=== PATIENT | female | born 1990 | race Two or more races ===

== ENCOUNTER → 2018-09-10 | Outpatient (CLI) | payer SELFPAY ==
--- NOTE | 2018-09-10 16:05 | RADIOLOGY REPORT (SQ) ---
EXAM DESCRIPTION: U/S OB 14+ TRNABD 1GES W/O DOP COMPLETED DATE/TIME: 09/10/2018 3:05 pm REASON FOR STUDY: ENCTR FOR SUPERVISION OF OTHER NORMAL 2ND TRIMESTER (Z34.82) Z34.82 ENC OUNTER FOR SUPRVSN OF NORMAL , SECOND TRI COMPARISON: None. TECHNIQUE: Static and Dynamic grayscale imaging performed of gravid uterus using transabdominal appr oach. Additional selected color Doppler and spectral images recorded. All stored on PACS. LIMITATIONS: None. FINDINGS: FETUSES SEEN:1 EGA: 26 week 4 day. Calculated using BPD,FL,HC,AC documented on images. Clinical dates not provided. RAMOS: 12/13/2018. EFW: 930 grams ZACK: Adequate amount. PLACENTA: Posterior. GRADE: I PRESENTATION: Cephalic. ANATOMY: HEART RATE: 144 beats per minute. FOUR CHAMBER HEART: Visualized. THREE VESSEL CORD: Yes. CORD INSERTION: Visualized. KIDNEYS AND BLADDER: Questionable mild prominence of the collecting system of the left kidney. Limited visualization. STOMACH: Visualized. Appears normal. SPINE: Normal as visualized. BRAIN AND LATERAL VENTRICLES: Visualized. Appear normal. OTHER: No other significant finding. MATERNAL ADNEXA: Maternal ovaries not visualized. CERVICAL LENGTH: Not adequately seen. OTHER: No other significant finding. IMPRESSION: LIVING INTRAUTERINE . ESTIMATED GESTATIONAL AGE 26 WEEK 4 DAY. POSSIBLE MILD PROMINENCE OF THE COLLECTING SYSTEM OF THE LEFT KIDNEY. RECOMMEND FOLLOWUP ULTRA SOUND LATER IN TO RE-EVALUATE THIS FINDING. NO OTHER VISUALIZED ANOMALIES. Trimester of : Second trimester - 13 weeks 1 day to 27 weeks 6 days. TECHNICAL DOCUMENTATION: JOB ID: [id number] [employer]- All Rights Reserved Reading location - IP/workstation name: [email or web address]
== END ==
LOC: RAD 14:05
PROVIDERS: ATTEND Nurse Practitioner
DX: Z34.82 Encounter for supervision of other normal pregnancy, second trimester (principal)
CPT/HCPCS: 76805

== ENCOUNTER 2018-10-08 22:02 | Outpatient (CLI) | payer SELFPAY ==
[2018-10-08 22:44] LABS: APPEARANCE,URINE CLEAR; BILIRUBIN,URINE NEGATIVE (NEGATIVE); COLOR,URINE YELLOW; GLUCOSE, URINE 150 mg/dL (NEGATIVE); KETONES,URINE TRACE mg/dL (NEGATIVE); LEUKOCYTE ESTERASE,URINE NEGATIVE (NEGATIVE); NITRITE,URINE NEGATIVE (NEGATIVE); PROTEIN,URINE NEGATIVE (NEGATIVE); URINE SPECIFIC GRAVITY 1.023; UROBILINOGEN,URINE NEGATIVE mg/dL (<2.0)
[2018-10-08 23:30] LABS: URINE AMPHETAMINES SCREEN NEGATIVE; URINE BARBITURATES SCREEN NEGATIVE; URINE BENZODIAZEPINES SCREEN NEGATIVE; URINE COCAINE SCREEN NEGATIVE; URINE MARIJUANA (THC) SCREEN NEGATIVE; URINE METHADONE SCREEN NEGATIVE; URINE PHENCYCLIDINE SCREEN NEGATIVE
[2018-10-08] MEDS ORDERED: BETAMET ACET/BETAMET NA INJ 6 MG/1 ML ONE (23:56)
[2018-10-08] MEDS ORDERED: BETAMET ACET/BETAMET NA INJ 6 MG/1 ML IM ONE (23:58)
--- NOTE | 2018-10-09 00:01 | RADIOLOGY REPORT (SQ) ---
EXAM DESCRIPTION: US LIMITED COMPLETED DATE/TME: 10/08/2018 00:00 CLINICAL HISTORY: 27 years, Female, Cervical length to eval labor COMPARISON: Prior ultrasound 09/10/2018 TECHNIQUE: Limited Transverse and longitudinal transvaginal sonographic images in a third trimester patient. LIMITATIONS: None. FINDINGS: There is a single, live intrauterine gestation in the vertex presentation. Cervical length is 1.2 cm. No cervical funneling. The cervical os appears closed. A more detailed obstetric assessment was not performed at this time. heart tones obtained at 139 bpm. IMPRESSION: Cervical length is 1.2 cm and the cervical os appears closed. Single, live intrauterine gestation. Close obstetric follow-up recommended. copyright 2010 [employer]- All Rights Reserved
[2018-10-09] MEDS ORDERED: AMPICILLIN SOD INJ 2 GM VIAL IV ONE (00:04)
[2018-10-09] MEDS ORDERED: AMPICILLIN SOD INJ 2 GM VIAL ONE (00:05)
--- NOTE | 2018-10-09 01:15 | PDOC TRANSFER SUMMARY ---
General Admission Date/PCP: ROHIT ZAPATA, YAHIR Admission Date: 10/08/18 Transfer Date: 10/09/18 Accepting Facility: [facility] Accepting Physician: Dr. Castro Resuscitation Status: Full Code - Transfer Diagnosis (1) labor in third trimester Is this a current diagnosis for this admission?: Yes (2) History of delivery, currently in third trimester Is this a current diagnosis for this admission?: Yes (3) Short cervical length during in third trimester Is this a current diagnosis for this admission?: Yes (4) Previous section complicating Is this a current diagnosis for this admission?: Yes - Transfer Medications Home Medications: No Home Medications 10/08/18 - Allergies Allergies/Adverse Reactions: No Known Allergies Allergy (Verified 10/08/18 22:22) - Diet/Activity Discharge Activity: Bedrest Hospital Course Hospital Course: Pt seen in L&D for cramping and revealed a history of (2) previous deliveries. She also is previous C/S x 2. She cannot give a reason for the Primary C/S but was not allowed to at the facility. One delivery was at 32 weeks and the other at 29 weeks. Her CL tonight is 1.2 cm, but closed. She has had late and limited PNC. [facility] 26 weeks. She is pinky irregularly and not feeling any discomfort. Physical Exam Vital Signs: Intake & Output 10/07/18 10/08/18 10/09/18 06:59 06:59 06:59 Weight 67.4 kg General appearance: PRESENT: no acute distress Respiratory exam: PRESENT: clear to auscultation elder Cardiovascular exam: PRESENT: RRR GI/Abdominal exam: PRESENT: normal bowel sounds, soft Extremities exam: ABSENT: calf tenderness, clubbing, full ROM, joint swelling, pedal edema, tenderness, +1 edema, +2 edema, other Results Laboratory Results: 10/08/18 22:17 Urine Color YELLOW Urine Appearance CLEAR Urine pH 6.0 Ur Specific [place] 1.023 Urine Protein NEGATIVE Urine Glucose (UA) 150 H Urine Ketones TRACE H Urine Blood NEGATIVE Urine Nitrite NEGATIVE Ur Leukocyte Esterase NEGATIVE Urine WBC (Auto) 1 Urine RBC (Auto) 29 Impressions: Obstetrics Ultrasound 10/08/18 00:00 IMPRESSION: Cervical length is 1.2 cm and the cervical os appears closed. Single, live intrauterine gestation. Close obstetric follow-up recommended. copyright 2011 [employer]- All Rights Reserved Plan Discharge Plan: 1. Transfer to [facility]--accepted by Dr. Castro 2. Betamethasone 12 mg IM 3. Ampicillin 2 g IV now Time Spent: Less than 30 Minutes
== END 2018-10-09 02:21 | disposition short-term general hospital (02) ==
LOC: LC 22:02
PROVIDERS: ATTEND Obstetrics & Gynecology
PROC: 4A1HXCZ Monitoring of Products of Conception, Cardiac Rate, External Approach (ICD-10-PCS; principal; 2018-10-08)
DX: O26.873 Cervical shortening, third trimester (principal); O34.219 Maternal care for unspecified type scar from previous cesarean delivery; O09.33 Supervision of pregnancy with insufficient antenatal care, third trimester; Z3A.30 30 weeks gestation of pregnancy
CPT/HCPCS: 59899; 94760; 81001; 80307; 76815; J0290; J0702

== ENCOUNTER 2018-11-11 02:45 | Outpatient (CLI) | payer SELFPAY ==
[2018-11-11 03:17] LABS: APPEARANCE,URINE SLIGHTLY-CLOUDY; BILIRUBIN,URINE NEGATIVE (NEGATIVE); COLOR,URINE YELLOW; GLUCOSE, URINE NEGATIVE (NEGATIVE); KETONES,URINE TRACE mg/dL (NEGATIVE); LEUKOCYTE ESTERASE,URINE TRACE (NEGATIVE); NITRITE,URINE NEGATIVE (NEGATIVE); PROTEIN,URINE NEGATIVE (NEGATIVE)
[2018-11-11 03:33] LABS: URINE AMPHETAMINES SCREEN NEGATIVE; URINE BARBITURATES SCREEN NEGATIVE; URINE BENZODIAZEPINES SCREEN NEGATIVE; URINE COCAINE SCREEN NEGATIVE; URINE MARIJUANA (THC) SCREEN NEGATIVE; URINE METHADONE SCREEN NEGATIVE; URINE PHENCYCLIDINE SCREEN NEGATIVE
[2018-11-11] MEDS ORDERED: ACETAMINOPHEN 325 MG TABLET ONE ×2 (03:38→03:39)
[2018-11-11] MEDS ORDERED: HYDROXYZINE PAMOATE 50 MG CAPSULE ONE (03:38)
[2018-11-11] MEDS ORDERED: RINGERS SOLUTION,LACTATED 1,000 ML IV PRN ×2 (03:39→03:44)
[2018-11-11] MEDS ORDERED: ACETAMINOPHEN 325 MG TABLET PO ONE ×2 (03:43→04:00)
[2018-11-11] MEDS ORDERED: HYDROXYZINE PAMOATE 50 MG CAPSULE PO ONE ×2 (03:45→04:00)
[2018-11-11 04:40] LABS: ABSOLUTE EOSINOPHILS # (AUTO) 0.1 10^3/uL (0.0-0.6); ABSOLUTE LYMPHOCYTES (AUTO) 2.2 10^3/uL (0.5-4.7); ABSOLUTE MONOCYTES (AUTO) 0.7 10^3/uL (0.1-1.4); ABSOLUTE NEUT (AUTO) 4.6 10^3/uL (1.7-8.2); BASOPHILS % (AUTO) 0.5 % (0-2); HEMATOCRIT 26.5 % (36.0-47.0); LYMPHOCYTES % (AUTO) 29.2 % (13-45); MEAN CORPUSCULAR HEMOGLOBIN 26.5 pg (27.0-33.4); MEAN CORPUSCULAR HGB CONC 33.8 g/dL (32.0-36.0); MEAN CORPUSCULAR VOLUME 78 fl (80-97); MONOCYTES % (AUTO) 9.5 % (3-13); PLATELET COUNT 278 10^3/uL (150-450); RED BLOOD COUNT 3.39 10^6/uL (3.72-5.28); RED CELL DISTRIBUTION WIDTH 14.1 % (11.5-14.0); SEGMENTED NEUTROPHILS % (AUTO) 59.8 % (42-78); TOTAL CELLS COUNTED % (AUTO) 100 %; WHITE BLOOD COUNT 7.6 10^3/uL (4.0-10.5)
[2018-11-11 05:25] LABS: RUBELLA INTERPRETATION POSITIVE
--- NOTE | 2018-11-11 06:22 | Non Stress Test Report ---
Non Stress Test Datetime Report Generated by CPN: 11/11/2018 06:22 DEMOGRAPHIC EGA NST: 35.3 INDICATION Indication for Study: Ordered by Provider MONITORING Monitor Explained: Monitor Explained; Test Explained; Patient Verbalized Understanding Time on Monitor: 11/11/2018 03:14 Time off Monitor: 11/11/2018 06:20 NST Duration: 186 NST INTERVENTIONS NST Interventions: IV Fluids Physician Notified NST: Dr. Mendoza BABY A: [id number] BABY A Movement : Present Contraction Frequency : uterine irritability FHR Baseline : 135 Accelerations : 15X15 Decelerations : None Variability : Moderate 6-25bpm NST Review: Meets Criteria for Reactive NST NST Review and Verified By : Ally Fields RN NST Results: Reactive NST REPORT Report Trigger: Send Report
[2018-11-12 10:38] LABS: HEPATITIS C VIRUS AB <0.1 s/co ratio (0.0-0.9)
[2018-11-12 10:47] LABS: HEPATITS B SURFACE ANTIGEN Negative (Negative)
== END 2018-11-11 06:03 | disposition home or self-care (01) ==
LOC: LC 02:45
PROVIDERS: ATTEND Obstetrics & Gynecology
PROC: 4A1HXCZ Monitoring of Products of Conception, Cardiac Rate, External Approach (ICD-10-PCS; principal; 2018-11-11)
DX: O47.03 False labor before 37 completed weeks of gestation, third trimester (principal); O09.33 Supervision of pregnancy with insufficient antenatal care, third trimester; Z3A.35 35 weeks gestation of pregnancy
CPT/HCPCS: 36415; 59025; 80307; 81001; 85025; 86701; 86762; 86803; 86804; 86850; 86900; 86901; 87081; 87340

== ENCOUNTER 2018-12-08 07:53 | Inpatient (IN) | payer SELFPAY ==
[2018-12-08] MEDS ORDERED: CEFAZOLIN 2 GM/D5W RTU 2 GM/50 ML RTUPB IV ONE (08:30)
[2018-12-08] MEDS ORDERED: CITRIC ACID/SODIUM CITRATE ORAL SOLN 15 ML UDCUP ONE (08:32)
[2018-12-08] MEDS ORDERED: RINGERS SOLUTION,LACTATED 1,000 ML IV ONE (08:40)
[2018-12-08] MEDS ORDERED: RINGERS SOLUTION,LACTATED 1,000 ML IV PRN (08:40)
[2018-12-08] MEDS ORDERED: DEXTROSE 40% GEL 15 GM TUBE PO PRN ×2 (08:42)
[2018-12-08] MEDS ORDERED: DEXTROSE 50%-WATER 25 GM/50 ML DISP.SYRIN IV PRN ×2 (08:42)
[2018-12-08] MEDS ORDERED: GLUCAGON,HUMAN RECOMB 1 MG INJ SUBCUT PRN (08:42)
[2018-12-08] MEDS ORDERED: CEFAZOLIN SODIUM 2 GM in DEXTROSE 5%-WATER 50 ML IV PRN (08:43)
[2018-12-08] MEDS ORDERED: ONDANSETRON HCL INJ/PF 4 MG/2 ML SDV ONE ×2 (08:55→09:44)
[2018-12-08] MEDS ORDERED: METOCLOPRAMIDE HCL INJ/PF 10 MG/2 ML SDV ONE (08:55)
[2018-12-08] MEDS ORDERED: PHENYLEPHRINE HCL INJ/PF 10 MG/1 ML SDV ONE (08:55)
[2018-12-08] MEDS ORDERED: DEXAMETHASONE SOD PHOSPHATE INJ 4 MG/1 ML VIAL ONE (08:55)
--- NOTE | 2018-12-08 09:16 | Admission Physical ---
Datetime Report Generated by CPN: 12/08/2018 09:16 CURRENT ADMISSION Chief Complaint: Uterine Contractions Indication for Induction: Not Applicable Admit Impression : Term, Intrauterine ; Active Labor; Intact Membranes; Repeat Section Admit Plan: Admit to Unit; Initiate Section Protocol ALLERGIES Medication Allergies: No Medication Allergies: No Known Allergies (11/11/2018) Latex: No Latex Allergies OBSTETRICAL HISTORY EDC: 12/13/2018 00:00 : 4 Para: 2 Term: 0 : 2 SAB: 1 IAB: 0 Ectopic: 0 Livin Cesareans: 2 VBACs: 0 Multiple Births: 0 Gestational Diabetes: No Rh Sensitization: No Incompetent Cervix: No KARINA: No Infertility: No ART Treatment: No Uterine Anomaly: No IUGR: No Hx Previous C/S: Yes Macrosomia: No Hx Loss/Stillborn: No PIH: No Hx : No Placenta Previa/Abruption: No Depression/PP Depression: No PTL/PROM: Yes Post Hemorrhage: No Obstetrical History Comments: Pt states she had emergency C-sections with her first two births. One at 29 weeks and the other at 32 weeks. Pt does not know reason for C-seciton. Current - questionable mild prominence of the collecting system of the left kidney. late to PNC at 26 weeks. SEE RECORDS Alcohol: No Marijuana : No Cocaine: No Other Illicit Drugs: No Cigarettes: Never Smoker. [id number] MEDICAL HISTORY Diabetes: No Blood Transfusion: No Pulmonary Disease (Asthma, TB): No Breast Disease: No Hypertension: No Transportation Maintenance Supervisor Surgery: Yes Heart Disease: No Hosp/Surgery: No Autoimmune Disorder: No Anesthetic Complications: No Kidney Disease: No Abnormal Pap Smear: No Neuro/Epilepsy: No Psychiatric Disorders: No Other Medical Diseases: No Hepatitis/Liver Disease: No Significant Family History: No Varicosities/Phlebitis: No Trauma/Violence : No Thyroid Dysfunction: No INFECTIOUS HISTORY Gonorrhea: No Genital Herpes: No Chlamydia: No Tuberculosis: No Syphilis: No Hepatitis: No HIV/AIDS Exposure: No Rash or Viral Illness: No HPV: No Infectious History Comments: Previous 2014 _ 2016 PHYSICAL EXAM General: Normal HEENT: Normal Neurologic: Normal Thyroid: Deferred Heart: Normal Lungs: Normal Breast: Deferred Back: Normal Abdomen: Normal Genitourinary Exam: Normal Extremities: Normal DTRs: Normal Pelvic Type: Adequate Vital Signs: Reviewed VAGINAL EXAM Dilatation: 4 Effacement: 100 Station: -2 MEMBRANES Membranes: Intact FETUS A EGA: 39.2 Monitoring: External US FHR- Baseline: 120 Variability: Moderate 6-25bpm Decelerations: None FHR Category: Category I Presentation: Vertex Admit Comment: 27yo at 39+2ega presents for uterine contractions. cvx was 3cm last week. Now 4-5/100/-2. late to care and limited care. h/o C/S x 2 (PTL at 29 and 32wks). She in now in early active labor and due to two prior sections needs repeat section. She desires permanent sterilization. Title XX signed at [facility]. Pt denies any other medical issues. Reviewed h/o General anesthesia with last two c/s and reviewed better safety with spinal and she agrees to spinal. Labs done 10/2018 triage visit. motorcycle police officer to OR for Repeat section with BTL. Consents signed. PLANS FOR LABOR AND DELIVERY Labor and Delivery: None Pain Management: Spinal Feeding Preference: Breast Benefit of Breast Feed Discussed: Yes Circumcision: N/A INFORMED CONSENT Informed Consent Obtained: Section Delivery; Risks, Benefits and Alternatives Discussed Signature: with User ID: [email or web address]
[2018-12-08 09:17] LABS: APPEARANCE,URINE SLIGHTLY-CLOUDY; BILIRUBIN,URINE NEGATIVE (NEGATIVE); COLOR,URINE YELLOW; GLUCOSE, URINE NEGATIVE (NEGATIVE); KETONES,URINE NEGATIVE (NEGATIVE); LEUKOCYTE ESTERASE,URINE SMALL (NEGATIVE); NITRITE,URINE NEGATIVE (NEGATIVE); PROTEIN,URINE NEGATIVE (NEGATIVE); UROBILINOGEN,URINE NEGATIVE mg/dL (<2.0)
[2018-12-08 09:31] LABS: ABSOLUTE EOSINOPHILS # (AUTO) 0.1 10^3/uL (0.0-0.6); ABSOLUTE LYMPHOCYTES (AUTO) 2.8 10^3/uL (0.5-4.7); ABSOLUTE MONOCYTES (AUTO) 0.4 10^3/uL (0.1-1.4); ABSOLUTE NEUT (AUTO) 4.1 10^3/uL (1.7-8.2); BASOPHILS % (AUTO) 0.7 % (0-2); EOSINOPHILS % (AUTO) 1.4 % (0-6); HEMATOCRIT 28.9 % (36.0-47.0); HEMOGLOBIN 9.6 g/dL (12.0-15.5); LYMPHOCYTES % (AUTO) 37.1 % (13-45); MEAN CORPUSCULAR HEMOGLOBIN 25.3 pg (27.0-33.4); MEAN CORPUSCULAR HGB CONC 33.1 g/dL (32.0-36.0); MEAN CORPUSCULAR VOLUME 77 fl (80-97); MONOCYTES % (AUTO) 5.6 % (3-13); PLATELET COUNT 268 10^3/uL (150-450); RED BLOOD COUNT 3.78 10^6/uL (3.72-5.28); RED CELL DISTRIBUTION WIDTH 15.2 % (11.5-14.0); SEGMENTED NEUTROPHILS % (AUTO) 55.2 % (42-78); TOTAL CELLS COUNTED % (AUTO) 100 %; WHITE BLOOD COUNT 7.4 10^3/uL (4.0-10.5)
[2018-12-08 09:36] LABS: URINE AMPHETAMINES SCREEN NEGATIVE; URINE BARBITURATES SCREEN NEGATIVE; URINE BENZODIAZEPINES SCREEN NEGATIVE; URINE COCAINE SCREEN NEGATIVE; URINE MARIJUANA (THC) SCREEN NEGATIVE; URINE METHADONE SCREEN NEGATIVE; URINE PHENCYCLIDINE SCREEN NEGATIVE
[2018-12-08] MEDS ORDERED: EPHEDRINE SULFATE INJ 50 MG/1 ML AMPULE ONE (09:44)
[2018-12-08] MEDS ORDERED: MIDAZOLAM 2 MG/2 ML INJ ONE (09:44)
[2018-12-08] MEDS ORDERED: BUPIVACAINE HCL/DEX-WATER/PF 15 MG/2 ML AMPULE ONE (09:44)
[2018-12-08] MEDS ORDERED: FENTANYL CITRATE INJ/PF 100 MCG/2 ML AMPUL ONE (09:44)
[2018-12-08] MEDS ORDERED: OXYTOCIN 10 UNIT/ML VIAL ONE (09:45)
[2018-12-08] MEDS ORDERED: MORPHINE SULFATE 10 MG/ML INJ IV PRN (10:22)
[2018-12-08] MEDS ORDERED: PROMETHAZINE HCL INJ 25 MG/1 ML VIAL IV PRN ×3 (10:22→11:09)
[2018-12-08] MEDS ORDERED: MEPERIDINE HCL/PF INJ 25 MG/1 ML DISP.SYRIN IV PRN (10:22)
[2018-12-08] MEDS ORDERED: DIPHENHYDRAMINE HCL 50 MG/ML VIAL IV PRN (10:22)
[2018-12-08] MEDS ORDERED: FENTANYL CITRATE INJ/PF 100 MCG/2 ML AMPUL IV PRN ×3 (10:22)
[2018-12-08] MEDS ORDERED: ACETAMINOPHEN 325 MG TABLET PO PRN (11:09)
[2018-12-08] MEDS ORDERED: ACETAMINOPHEN 1,000 MG/100 ML RTUPB IV PRN (11:09)
[2018-12-08] MEDS ORDERED: OXYTOCIN/NORMAL SALINE 20 UNIT/1,000 ML RTUINJ IV PRN (11:09)
[2018-12-08] MEDS ORDERED: MEASLES,MUMPS&RUBELLA VACC/PF 0.5 ML VIAL SUBCUT PRN (11:09)
[2018-12-08] MEDS ORDERED: HYDROMORPHONE HCL INJ/PF 2 MG/ML AMPULE IV PRN (11:09)
[2018-12-08] MEDS ORDERED: DIPH/PERTUSS(ACELL)/TETANUS VAC/PF 0.5 ML SYR (>=10YO) IM PRN (11:09)
[2018-12-08] MEDS ORDERED: SIMETHICONE 80 MG TAB.CHEW PO PRN (11:09)
[2018-12-08] MEDS ORDERED: OXYCODONE-ACETAMINOPHEN 5-325 MG TABLET PO PRN (11:09)
[2018-12-08] MEDS ORDERED: ACETAMINOPHEN 1,000 MG/100 ML RTUPB IV ONE (11:16)
--- NOTE | 2018-12-08 11:26 | Brief Operative Note ---
BRIEF OPERATIVE REPORT DATE OF SURGERY: 12/08/18 TIME OF SURGERY: 10:00 PREOPERATIVE DIAGNOSIS: active labor, PUND at 39+2ega. H/o section x 2, multiparity, undesired fertility. 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 normal bilateral tubes and ovaries. Filschie clips already pulled for case therefore filschie clips times one placed on each tube in the mid ampullary portion of the tube. Surgicel placed over rectus muscle due to bleeding. Scar which was keloid was removed to repaire pfannensteil incision. Apgars 8/9, weigth 7#4oz. Time of 1013, female infant COMPLICATIONS: None ESTIMATED BLOOD LOSS: 560 TISSUE REMOVED OR ALTERED: placenta and cord TECHNICAL PROCEDURE: Repeat Section, Scar revision, Bilateral tubal ligation
[2018-12-08] MEDS ORDERED: HYDROMORPHONE HCL INJ/PF 2 MG/ML AMPULE ONE (12:17)
[2018-12-08] MEDS ORDERED: PROMETHAZINE HCL INJ 25 MG/1 ML VIAL ONE (13:05)
--- NOTE | 2018-12-08 17:03 | Operative Report ---
Operative Report DATE OF SURGERY: 12/08/18 PREOPERATIVE DIAGNOSIS: active labor, PUND at 39+2ega. H/o section x 2, multiparity, undesired fertility. 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 normal bilateral tubes and ovaries. Filschie clips already pulled for case therefore filschie clips times one placed on each tube in the mid ampullary portion of the tube. Surgicel placed over rectus muscle due to bleeding. Scar which was keloid was removed to repaire pfannensteil incision. Apgars 8/9, weigth 7#4oz. Time of 1013, female infant PROCEDURE: Anesthesia: Spinal Anesthesia provider: [MD Shaun] Urine output: [150ml] IV fluids: [2000ml] Indications: [28yo at 39+2ega presents for uterine contractions in active labor with cervix 4-5/100/-2. She has a history of 2 prior sections at 29 and 32wks that were emergent. She has undesired fertility. She has signed a Title XX and desires permanent sterilization. The risks, benefits, alternatives were reviewed and she desires to proceed with planned procedure.] Procedure: The patient was taken to the operating room where spinal anesthesia was obtained and found to be adequate. She was then prepped and draped in the normal sterile fashion and placed in the dorsal supine position with a leftward tilt. A Pfannenstiel skin incision was then made and carried through to the underlying layers of the fascia with the scalpel. The fascia was incised in the midline and the incision extended laterally with the Alcala scissors. The superior aspect of the fascial incision was then grasped with Joyce clamps elevated and the underlying rectus muscles dissected off [sharply]. Attention was then turned to the inferior aspect of the fascial incision which in a similar fashion was grasped, tented up with Joyce clamps, and the rectus muscles dissected off [sharply]. The rectus muscles were then in the midline and the peritoneum at the amount identified and entered [bluntly]. The peritoneal incision was then extended superiorly and inferiorly with good vi sualization of the bladder. The bladder blade was inserted and the uterine window as described in findings. At this time transverse incision made above the uterine window in the mid body of the fundus. The uterine incision was then extended bluntly. The bladder blade was removed and the 's head was delivered from cephalic presentation atraumatically. The nose and mouth were suctioned and the cord doubly clamped and cut. And the infant was handed off to waiting pediatricians. The placenta was then delivered spontaneously and the uterus exteriorized and cleared of all clots and debris. The uterine incision was then repaired with 1- 0 Vicryl in a running locked fashion. A second layer of the same suture was used to obtain hemostasis via imbrication of the initial layer. The bladder flap was then repaired with 3-0 chromic in a running fashion. Filschie clips were placed on the left and right fallopian tube in the mid ampullary portion bilaterally. The uterus was returned to the patient's abdomen and Interceed was placed overlying the uterine incision to prevent adhesions. The gutters were cleared of all clots and debris. All operative sites were noted to be hemostati c. The fascia was reapproximated with 0 Vicryl in a running fashion from each lateral edge to the midline. The skin was closed with 3-0 Monocryl in a running subcuticular fashion with overlying Dermabond for additional dressing as well as wound closure. The patient tolerated the procedure well. Sponge lap needle and instrument counts are correct times 2. 2 g of Ancef were given prior to skin incision. The patient was taken to the recovery area awake and in stable condition.
[2018-12-08] MEDS: IBUPROFEN 800 MG TABLET PO SCH ×2 (17:49→17:50)
[2018-12-08] MEDS: DOCUSATE SODIUM 100 MG CAPSULE PO SCH (17:50)
[2018-12-08] MEDS: OXYCODONE-ACETAMINOPHEN 5-325 MG TABLET PO PRN (21:46)
[2018-12-09] MEDS: OXYCODONE-ACETAMINOPHEN 5-325 MG TABLET PO PRN ×3 (02:10→20:32)
[2018-12-09] MEDS: IBUPROFEN 800 MG TABLET PO SCH ×4 (06:02→17:25)
[2018-12-09 07:59] LABS: HEMATOCRIT 27.6 % (36.0-47.0); HEMOGLOBIN 9.1 g/dL (12.0-15.5); MEAN CORPUSCULAR HEMOGLOBIN 25.2 pg (27.0-33.4); MEAN CORPUSCULAR VOLUME 76 fl (80-97); PLATELET COUNT 281 10^3/uL (150-450); RED BLOOD COUNT 3.62 10^6/uL (3.72-5.28); RED CELL DISTRIBUTION WIDTH 15.6 % (11.5-14.0)
[2018-12-09] MEDS: DOCUSATE SODIUM 100 MG CAPSULE PO SCH ×2 (10:11→17:25)
[2018-12-09] MEDS: PRENATAL VITAMIN W DHA CAPSULE PO SCH (10:12)
--- NOTE | 2018-12-09 16:51 | PDOC PROGRESS REPORT ---
Subjective-OB Progress Note for:: 12/09/18 Subjective: 28yo G4 now P3 s/p repeat ppd1. Pt. ambulating and voiding without difficulty. , reports passing gas. Denies any concerns today. . Physical Exam (OB) Vital Signs: Temp Pulse Resp BP Pulse Ox 98.6 F 69 15 128/65 H 98 12/09/18 09:02 12/09/18 09:02 12/09/18 09:02 12/09/18 09:02 12/09/18 09:02 Intake & Output 12/08/18 12/09/18 12/10/18 06:59 06:59 06:59 Intake Total 1432 Output Total 1900 Balance -468 Weight 69.8 kg - General General Appearance: Appears well In distress: None - PIH/Pre-Eclampsia Clonus: Negative Headache: Absent Epigastric Pain: No Visual Changes: No - Dressing Removed: Yes Incision: Well Approximated Closure Type: Surgical Glue - Bilateral Tubal Ligation Dressing Removed: No Site: Dressing - Lochia Lochia Amount: Scant < 10 ml Lochia Color: Rubra/Red - Abdomen Description: Tender, Soft Hernia Present: No Fundal Description: Firm, Midline Fundal Height: u/u - u/2 - Respiratory Respiratory Status: No respiratory distress - Cardiovascular Rhythm: Regular - Extremities Upper extremity: Normal inspection Lower extremities: Normal inspection - Neurological Cognition: Normal Orientation: AAOx4 - Psychological Associated symptoms: Normal affect, Normal mood Objective-Diagnostic Laboratory: 12/09/18 07:53 12/09/18 12/09/18 06:22 07:53 WBC Cancelled 14.0 H RBC Cancelled 3.62 L Hgb Cancelled 9.1 L Hct Cancelled 27.6 L MCV Cancelled 76 L MCH Cancelled 25.2 L MCHC Cancelled 33.0 RDW Cancelled 15.6 H Plt Count Cancelled 281 Assessment and Plan(PN) - Assessment and Plan (1) Anemia affecting in third trimester Is this a current diagnosis for this admission?: Yes Plan: Increase dietary iron and FeSO4 BID. (2) Status post scar revision Is this a current diagnosis for this admission?: Yes Plan: routine pp care (3) Limited care Qualifiers: Trimester: unspecified trimester Qualified Code(s): O09.30 - Supervision of with insufficient care, unspecified trimester Is this a current diagnosis for this admission?: Yes Plan: delviered (4) Sterilization Is this a current diagnosis for this admission?: Yes Plan: Routine pp care. Continue to monitor for s/s of infection (5) Status post section Is this a current diagnosis for this admission?: Yes Plan: . Routine pp care. Continue to monitor for s/s of infection (6) History of delivery, currently in third trimester Is this a current diagnosis for this admission?: Yes Plan: term delivery, delivered (7) Previous section complicating Is this a current diagnosis for this admission?: Yes Plan: delivered - Time Spent with Patient Time with patient: Less than 15 minutes - Disposition Anticipated Discharge: Home Within: within 24 hours
[2018-12-09] MEDS ORDERED: ONDANSETRON 4 MG TAB.RAPDIS PO PRN (23:54)
[2018-12-09] MEDS ORDERED: ONDANSETRON 4 MG TAB.RAPDIS ONE (23:54)
[2018-12-10] MEDS: IBUPROFEN 800 MG TABLET PO SCH ×3 (00:55→11:00)
[2018-12-10 08:44] LABS: HEPATITIS C VIRUS AB <0.1 s/co ratio (0.0-0.9)
--- NOTE | 2018-12-10 09:03 | PDOC PROGRESS REPORT ---
Subjective-OB Progress Note for:: 12/10/18 Subjective: Ready to go home. Physical Exam (OB) Vital Signs: Temp Pulse Resp BP Pulse Ox 98.8 F 74 16 128/65 H 98 12/10/18 08:47 12/10/18 08:47 12/10/18 08:47 12/10/18 08:47 12/10/18 08:47 Intake & Output 12/09/18 12/10/18 12/11/18 06:59 06:59 06:59 Intake Total 1432 2230 Output Total 1900 Balance -468 2230 Weight 69.8 kg - PIH/Pre-Eclampsia Clonus: Negative Headache: Absent Epigastric Pain: No Visual Changes: No - Dressing Removed: Yes Incision: Well Approximated Closure Type: Surgical Glue - Bilateral Tubal Ligation Dressing Removed: Yes - Lochia Lochia Amount: Scant < 10 ml Lochia Color: Rubra/Red - Abdomen Description: Soft, Round Hernia Present: No Bowel Sounds: Normoactive Flatus Presence: Present Stool: No Fundal Description: Firm, Midline Fundal Height: u/u - u/2 Objective-Diagnostic Laboratory: 12/09/18 07:53 Assessment and Plan(PN) - Disposition Anticipated Discharge: Home
--- NOTE | 2018-12-10 09:16 | PDOC DISCHARGE SUMMARY ---
Addendum entered and electronically signed by TOM QUEEN CNM 12/10/18 09:36: Final Diagnosis Discharge Date: 12/10/18 - Final Diagnosis (1) Limited care Is this a current diagnosis for this admission?: Yes (2) Anemia affecting in third trimester Is this a current diagnosis for this admission?: Yes (3) Status post section Is this a current diagnosis for this admission?: Yes (4) Status post scar revision Is this a current diagnosis for this admission?: Yes (5) Sterilization Is this a current diagnosis for this admission?: Yes Original Note: Final Diagnosis Discharge Date: 12/10/18 Discharge Data - Discharge Medication Prescriptions: Oxycodone HCl/Acetaminophen [Percocet 5-325 mg Tablet] 1 tab PO Q4HP PRN #20 tablet PRN Reason: Docusate Sodium [Colace 100 mg Capsule] 100 mg PO BID #30 capsule Ferrous Sulfate 325 mg PO BID #60 tablet. Ibuprofen [Motrin 800 mg Tablet] 800 mg PO Q6 #30 tablet Home Medications: Vit/Dha [ Multi + Dha Capsule] 1 cap PO DAILY 12/08/18 Docusate Sodium [Colace 100 mg Capsule] 100 mg PO BID #30 capsule 12/10/18 Ferrous Sulfate 325 mg PO BID #60 tablet. 12/10/18 Ibuprofen [Motrin 800 mg Tablet] 800 mg PO Q6 #30 tablet 12/10/18 Oxycodone HCl/Acetaminophen [Percocet 5-325 mg Tablet] 1 tab PO Q4HP PRN #20 tablet 12/10/18 Gestational Age: 39.2 wks Reason(s) for Admission: Onset of Labor Procedures: Ultrasound Intrapartum Procedure(s): : Low Cervical, Transverse - Jackson Data Baby 1 Female at 1 minute: 8 at 5 minutes: 9 Weight: 3.289 kg Home with Mother: Yes Complications: No - Diagnosis Test Laboratory: Temp Pulse Resp BP Pulse Ox 98.8 F 74 16 128/65 H 98 12/10/18 08:47 12/10/18 08:47 12/10/18 08:47 12/10/18 08:47 12/10/18 08:47 12/08/18 12/08/18 12/09/18 08:15 09:06 06:22 RBC 3.78 Cancelled Hgb 9.6 L Cancelled Hct 28.9 L Cancelled Urine Opiates Screen NEGATIVE 12/09/18 07:53 RBC 3.62 L Hgb 9.1 L Hct 27.6 L Urine Opiates Screen - Discharge information/Instructions Discharge Activity: Activity As Tolerated, Balance Activity w/Rest, No Driving, No Lifting Over 10 Pounds, No Lifting/Push/Pulling, Pelvic Rest, Slowly Increase Activity, No tub bath, Walk Frequently Discharge Diet: Regular Disposition: HOME, SELF-CARE Follow [facility]: [facility] in: 1, Weeks
[2018-12-10] MEDS: DOCUSATE SODIUM 100 MG CAPSULE PO SCH (10:14)
[2018-12-10] MEDS: PRENATAL VITAMIN W DHA CAPSULE PO SCH (10:14)
--- NOTE | 2018-12-10 10:47 | Delivery Summary ---
Del Sum A-C Datetime Report Generated by CPN: 12/10/2018 10:46 DELIVERY PERSONNEL DELIVERY PERSONNEL: [id number] Delivery Doctor:: Pilar Staley MD Anesthesiologist:: Shaun METAL FABRICATOR:: Mariely Valenteael, METAL FABRICATOR Separator Inserter:: Shady Gonzales, RN Color Dipper/TAR DISTILLATION SUPERVISOR: Shreya Scotty, BRIDGE LEVERMAN Color Dipper/TAR DISTILLATION SUPERVISOR: Jaimie Siu, ST MATERNAL INFORMATION Delivery Anesthesia: Spinal Maternal Complications: None LABOR SUMMARY EDC: 12/13/2018 00:00 No. Babies in Womb: 1 Attempted: No Labor Anesthesia: None LABOR INFORMATION Reason for Induction: Not Applicable Onset of Labor: 12/08/2018 08:20 Oxytocin: N/A Group B Beta Strep: 1 NO GROUP B STREPTOCOCCUS RECOVERED Antibiotics # of Doses: 1 Antibiotics Time of Last Dose: 0939 Name of Antibiotic Given: Ancef Steroids Given: Full Course Reason Steroids Not Administered: Indication MEMBRANES Membranes Rupture Method: Artificial Rupture of Membranes: 12/08/2018 10:13 Length of Rupture (hr): 0.00 Amniotic Fluid Color: Clear Amniotic Fluid Amount: Moderate Amniotic Fluid Odor: Normal STAGES OF LABOR Stage 3 hr: 0 Stage 3 min: 1 Total Time in Labor hr: 1 Total Time in Labor min: 54 VAGINAL DELIVERY Episiotomy: None Episiotomy: None Laceration #1: None Laceration #1: None Laceration Extension #1: N/A Laceration Extension #1: N/A Laceration Repair: Not Applicable Sponge Count Correct: N/A Sharps Count Correct: N/A CSECTION DELIVERY Primary Indication: > 2 Previous C-Sections Primary Indication: Repeat Elective Secondary Indication: N/A CSection Urgency: Non-Scheduled CSection Incidence: Repeat CSection Incidence: N/A Labor: Labor Labor: N/A Elective: Nonelective CSection Incision: Lower Uterine Transverse (Annotations: Data stored by [facility] on behalf of user) CSection Incision: Lower Uterine Transverse BABY A INFORMATION Delivery Date/Time: 12/08/2018 10:13 Method of Delivery: Born in Route : No : N/A Forceps: N/A Vacuum Extraction: N/A Shoulder Dystocia : No PRESENTATION/POSITION BABY A Presentation: Cephalic Cephalic Presentation: Vertex Breech Presentation: N/A PLACENTA INFORMATION BABY A Placenta Delivery Time : 12/08/2018 10:14 Placenta Method of Delivery: Manual Removal Placenta Status: Delivered SCORES BABY A Heart Rate 1 min: >100 bpm Resp Effort 1 min: Good Cry Reflex Irritability 1 min: Cough or Sneeze or Pulls Away Muscle Tone 1 min: Active Motion Color 1 min: Blue/Pale SCORE 1 MIN: 8 Heart Rate 5 min: >100 bpm Resp Effort 5 min: Good Cry Reflex Irritability 5 min: Cough or Sneeze or Pulls Away Muscle Tone 5 min: Active Motion Color 5 min: Body [place], Extremities Blue SCORE 5 MIN: 9 INFANT INFORMATION BABY A Gestational Age at Delivery: 39.2 Gestational Status: Full Term- 39- 40.6 Weeks Infant Outcome : Liveborn Infant Condition : Stable Infant Sex: Female IDENTIFICATION BABY A Infant Verification Date/Time: 12/08/2018 11:37 ID Band Number: [id number] Mother's Name Verified: Yes Infant RN Verifying Infant: blake gonzales RN Additional Verifying Personnel: Tricia Griffin RN WEIGHT/LENGTH BABY A Infant Birthweight (gm): 3275 Weight (lb): 7 Weight (oz): 4 Length (in): 20.00 Length (cm): 50.80 CORD INFORMATION BABY A No. Cord Vessels: 3 Nuchal Cord : N/A Cord Blood Taken: Yes-For Storage (Mom's Blood type +) Suction: Mouth; Nose ASSESSMENT BABY A Skin to Skin: Yes Skin to Skin Time (min): 10 Care By: O. Irvin, RN BABY B INFORMATION : N/A
[2018-12-10 12:11] VITALS: BP 128/65
== END 2018-12-10 17:17 | disposition home or self-care (01) | DRG 785 ==
LOC: LC 07:53 → LR 08:33 → 2S 13:30
PROVIDERS: ADMIT Student in an Organized Health Care Education/Training Program; ATTEND Student in an Organized Health Care Education/Training Program
PROC: 10D00Z1 Extraction of Products of Conception, Low, Open Approach (ICD-10-PCS; principal; 2018-12-08)
PROC: 0UL70CZ Occlusion of Bilateral Fallopian Tubes with Extraluminal Device, Open Approach (ICD-10-PCS; 2018-12-08)
PROC: 4A1HXCZ Monitoring of Products of Conception, Cardiac Rate, External Approach (ICD-10-PCS; 2018-12-08)
DX: O99.02 Anemia complicating childbirth (principal); Z30.2 Encounter for sterilization; D64.9 Anemia, unspecified; Z3A.39 39 weeks gestation of pregnancy; Z37.0 Single live birth
CPT/HCPCS: 1961; 36415; 80307; 81005; 85025; 85027; 86592; 86803; 86804; 86850; 86900; 86901; 88307; 94799; J0131; J0690; J1100; J1170; J2250; J2370; J2405; J2550; J2590; J2765; J3010; J3490; S0119

== ENCOUNTER 2019-11-13 21:50 | Emergency (ER) | payer SELFPAY ==
[2019-11-13] MEDS ORDERED: ONDANSETRON HCL 8 MG TABLET PO ONE (22:29)
[2019-11-13] MEDS ORDERED: ONDANSETRON 4 MG TAB.RAPDIS PO ONE (22:32)
[2019-11-13 22:58] LABS: A TYPE INFLUENZA AG NEGATIVE (NEGATIVE); B INFLUENZA AG NEGATIVE (NEGATIVE)
[2019-11-14] MEDS ORDERED: ONDANSETRON ODT 4 MG TAB (6 TAB/ER DISP) PO PRN (01:28)
[2019-11-14] MEDS ORDERED: KETOROLAC TROMETHAMINE 60 MG/2 ML SDV IM ONE (01:28)
--- NOTE | 2019-11-14 01:33 | ER Document Report ---
ED General - General Chief Complaint: Flu Symptoms Stated Complaint: COUGH,HEADACHE,NAUSEA Time Seen by Provider: 11/14/19 01:21 TRAVEL OUTSIDE OF THE [place] IN LAST 30 DAYS: No - HPI Notes: Patient is a 29-year-old female with no significant medical history who presents to the emergency department for evaluation of cough, headache, vomiting. Symptoms of been ongoing for about a week. She states she started vomiting in the last 2 to 3 days. She has had about 6 episodes of nonbloody, nonbilious emesis in the last 24 hours. She is still urinating. She denies any dysuria, hematuria, urinary frequency. She denies any fevers of any sort. No diarrhea. She denies any shortness of breath. She has a frontal headache that she describes as an ache, nothing seems to make it better or worse. She has been trying [id number] pain relievers without any significant relief. - Related Data Allergies/Adverse Reactions: adhesive tape Allergy (Mild, Verified 11/13/19 22:21) Home Medications: None Past Medical History - General Information source: Patient - Social History Smoking Status: Never Smoker Family History: Reviewed & Not Pertinent Patient has suicidal ideation: No Patient has homicidal ideation: No Past Surgical History: Reports: Hx Tubal Ligation Review of Systems - Review of Systems Constitutional: No symptoms reported EENT: No symptoms reported Cardiovascular: No symptoms reported Respiratory: See HPI Gastrointestinal: See HPI Genitourinary: No symptoms reported Musculoskeletal: No symptoms reported Skin: No symptoms reported Neurological/Psychological: No symptoms reported Physical Exam - Vital signs Vitals: Temp Pulse Resp BP Pulse Ox 98.5 F 69 18 131/78 H 98 11/13/19 22:05 11/13/19 22:05 11/13/19 22:05 11/13/19 22:05 11/13/19 22:05 - Notes Notes: Vital signs reviewed, please refer to chart. Head is normocephalic, atraumatic. Pupils equal round, reactive to light. Neck is supple without meningismus. Heart is regular rate and rhythm. Lungs are clear to auscultation bilaterally. Abdomen is soft, nontender, normoactive bowel sounds throughout. Extremities without cyanosis, clubbing. Posterior calves are nontender. Peripheral pulses are equal. Skin is warm and dry. Patient is awake, alert, oriented x3. Cranial nerves II - XII are grossly intact without focal neurological deficits. Strength is plus 5 out of 5 bilateral upper and lower extremities. Sensation is intact. Reflexes symmetrical. Intact [id number], rapid alternating movements, [id number]. Course - Re-evaluation Re-evalutation: 11/14/19 01:32 Patient presents to the emergency department for evaluation. She was seen through triage, influenza was found to be negative. Her lungs are clear. She is oxygenating well. Her vital signs are unremarkable. At this point I will medicated with Toradol, sent her home with Zofran. I do not have a clear etiology of her symptoms, but it is likely viral syndrome. She is given instructions on supportive care. She is to follow-up with primary care, return to the ED with worsening or new concerning symptoms of any sort. - Vital Signs Vital signs: Temp Pulse Resp BP Pulse Ox 98.5 F 69 18 131/78 H 98 11/13/19 22:05 11/13/19 22:05 11/13/19 22:05 11/13/19 22:05 11/13/19 22:05 Discharge - Discharge Clinical Impression: Viral illness Nausea & vomiting Qualifiers: Vomiting Intractability: non-intractable Upper respiratory infection Qualifiers: URI type: unspecified URI Qualified Code(s): J06.9 - Acute upper respiratory infection, unspecified Condition: Stable Disposition: HOME, SELF-CARE Instructions: Antinausea Medication ([facility]), Upper Respiratory Illness ([facility]), Viral Syndrome ([facility]) Additional Instructions: Rest, stay well-hydrated. Zofran as needed for severe nausea. Follow-up with primary care this week. Return to the emergency department with worsening or new concerning symptoms of any sort.
[2019-11-14 01:52] VITALS: BP 119/63
== END 2019-11-14 01:50 | disposition home or self-care (01) ==
LOC: ER 21:50
DX: B34.9 Viral infection, unspecified (principal); J06.9 Acute upper respiratory infection, unspecified; R11.2 Nausea with vomiting, unspecified; R05 Cough; R51 Headache; Z88.9 Allergy status to unspecified drugs, medicaments and biological substances
CPT/HCPCS: 99283; 96372; 87804; J1885; S0119